=== PATIENT | male | born 2000 | race Two or more races ===

== ENCOUNTER 2021-09-10 18:44 | Emergency (ER) | payer MEDICAID ==
[~2021-09-10] VITALS: Ht 180.3 cm; Wt 122.7 kg
[2021-09-10 18:46] VITALS: BP 168/115
[2021-09-10] MEDS ORDERED: LORA-269 PO (21:34)
[2021-09-10] MEDS ORDERED: LORazepam 1 MG tablet PO ONE (21:35)
== END 2021-09-10 21:57 | disposition left against medical advice (07) ==
LOC: ER 18:45
DX: F41.9 Anxiety disorder, unspecified (principal); F32.A Depression, unspecified; R44.3 Hallucinations, unspecified; F12.90 Cannabis use, unspecified, uncomplicated; Z79.899 Other long term (current) drug therapy
CPT/HCPCS: 99283

== ENCOUNTER 2021-12-26 10:30 | Emergency (ER) | payer MEDICAID ==
[~2021-12-26 10:30] MED LIST: LORA-269 PO
== END 2021-12-26 12:04 | disposition left against medical advice (07) ==
LOC: ER 10:30
DX: L02.91 Cutaneous abscess, unspecified (principal); Z53.21 Procedure and treatment not carried out due to patient leaving prior to being seen by health care provider